=== PATIENT | male | born 1955 | race Asian ===

== ENCOUNTER 2017-12-12 06:38 | Day surgery (SDC) | payer BC ==
[2017-12-03 14:50] VITALS: BMI 26.5
[2017-12-12] MEDS ORDERED: PROPOFOL 20 ML ONE ×3 (06:41)
[2017-12-12 08:40] VITALS: BP 97/54; PULSE 65; TEMP 97.9
== END 2017-12-12 08:42 | disposition home or self-care (01) ==
LOC: FASU-ENDO 06:38
PROVIDERS: ATTEND Internal Medicine
PROC: 0DJD8ZZ Inspection of Lower Intestinal Tract, Via Natural or Artificial Opening Endoscopic (ICD-10-PCS; principal; 2017-12-12 07:24)
PROC: 0DJ08ZZ Inspection of Upper Intestinal Tract, Via Natural or Artificial Opening Endoscopic (ICD-10-PCS; 2017-12-12 07:24)
DX: Z86.010 Personal history of colon polyps (principal); K21.9 Gastro-esophageal reflux disease without esophagitis; K31.89 Other diseases of stomach and duodenum; K22.8 Other specified diseases of esophagus
CPT/HCPCS: 82962; 88305-TC; 88342-TC